=== PATIENT | female | born 2000 | race Caucasian/White ===

== ENCOUNTER 2025-02-12 10:52 | Emergency (ER) | payer SELFPAY ==
[2025-02-12 11:03] VITALS: BP 123/79; PULSE 91; RESP 18; TEMP 36.7; O2SAT 98; BMI 18.8
--- NOTE | 2025-02-12 12:00 | XRR_ITS ---
PROCEDURE INFORMATION: Exam: XR Right Elbow Exam date and time: 02/12/2025 12:24 PM Age: 24 years old Clinical indication: Screening exam; Fb; Additional info: Possible foreign body to medial RT elbow; PT had iv placed x 2mo ago; Has had pain/ subcutaneous deformity since; PT thinks they May have broken an iv cath off in arm TECHNIQUE: Imaging protocol: Radiologic exam of the right elbow. Views: 3 or more views. COMPARISON: No relevant prior studies available. FINDINGS: Bones/joints: Normal. Soft tissues: Normal. XR/XR elbow RT min 3V* [id number] IMPRESSION: 1. No acute findings. 2. No foreign body noted
--- NOTE | 2025-02-12 12:30 | W.ED.SKABFB ---
HPI - Skin/Abscess/Foreign Bdy General: Chief complaint: Skin/Abscess/Foreign Body Stated complaint: IV lead left in arm Time Seen by Provider: 02/12/25 12:16 History of Present Illness: 24-year-old male presents emergency room concerned about a retained foreign body from an IV in his right arm and a basilic vein from December 15 of this year. No abscess no fever sweats or chills. Palpable nodule in that area Related Data Home Medications ?Medication ?Instructions ?Recorded ?Confirmed albuterol sulfate 90 mcg/actuation 2 puff inhalation Q6H PRN 01/14/25 02/12/25 aerosol inhaler Shortness Of Breath cetirizine 10 mg tablet 10 mg PO DAILY 01/14/25 02/12/25 metoprolol succinate 25 mg 25 mg PO DAILY 01/14/25 02/12/25 tablet,extended release 24 hr pantoprazole 40 mg tablet,delayed 40 mg PO DAILY 01/14/25 02/12/25 release trazodone 100 mg tablet 200 mg PO BEDTIME 01/14/25 02/12/25 aripiprazole 20 mg tablet (Abilify) 20 mg PO DAILY 02/12/25 02/12/25 lithium carbonate 150 mg capsule 300 mg PO BID 02/12/25 02/12/25 Previous Rx's ?Medication ?Instructions ?Recorded budesonide-formoterol HFA 160 1 inh inhalation BID #10.2 grams 01/14/25 mcg-4.5 mcg/actuation aerosol inhaler (Symbicort) Allergies Allergy/AdvReac Type Severity Reaction Status Date / Time amoxicillin Allergy ALGY-Rash Verified 02/12/25 11:07 cephalexin Allergy ALGY-Anaphy Verified 01/14/25 17:20 laxis Penicillins Allergy ALGY-Rash Verified 01/14/25 17:20 PFSH ED PFSH: Medical History Smoking addiction Social History Smoking and tobacco/nicotine status: current every day tobacco/nicotine user Physical Exam Extremity: OTHER: Examination extremity is a palpable nodule overlying the about an inch and a half then another little more proximal in a superficial basilic vein. There is no redness no erythema no induration no fluctuance. Minimal tenderness Course Vital Signs: Vital signs: Vital Signs Temperature 98.1 F 02/12/25 11:03 Pulse Rate 91 02/12/25 11:03 Respiratory Rate 18 02/12/25 11:03 Blood Pressure 123/79 02/12/25 11:03 Pulse Oximetry 98 02/12/25 11:03 Oxygen Delivery Me thod Nasal Cannula 02/12/25 11:03 MDM - Skin/Abscess/Foreign Bdy Medicial Decision Making On ultrasound it appears the vessel wall is thickened however it does appear to have flow through there is not appear to be any identifiable foreign body x-ray also does not show foreign body with the penetration turned down to focus more on soft tissue. Is still possible that the IV catheter if it was retained would not show up however there are 2 separate areas both palpable nodules of believe he had a thrombophlebitis based on the ultrasound looks like it is already been recannulated. Advised the patient this time is no emergent condition if he is still very concerned about this and wished to have something further done he can talk to his primary care doctor about referral to vascular surgeon to have that section of vein excised. Medical Records I reviewed the patient's medical records. Lab Data I reviewed the patient's lab results. 02/12/25 12:16 Radiology Impressions Elbow X-Ray 02/12/25 12:00 IMPRESSION: 1. No acute findings. 2. No foreign body noted Laboratory Results WBC 9.84 10^3/uL (3.29-11.43) 02/12/25 12:16 RBC 5.38 10^6/uL (3.85-5.65) 02/12/25 12:16 Hgb 14.80 g/dL (11.27-16.99) 02/12/25 12:16 Hct 46.0 % (36-47) 02/12/25 12:16 MCV 85.5 fl (85-98) 02/12/25 12:16 MCH 27.5 pg (27-33) 02/12/25 12:16 MCHC 32.2 g/dL (30-55) 02/12/25 12:16 RDW 13.2 % (12.1-15.1) 02/12/25 12:16 Plt Count 222 10^3/cmm (157-399) 02/12/25 12:16 MPV 9.0 fL (7.4-10.4) 02/12/25 12:16 Neut % (Auto) 65.1 % 02/12/25 12:16 Lymph % (Auto) 23.1 % 02/12/25 12:16 George % (Auto) 8.6 % 02/12/25 12:16 Eos % (Auto) 2.4 % 02/12/25 12:16 Baso % (Auto) 0.5 % 02/12/25 12:16 Neut # (Auto) 6.40 10^3/uL (1.8-7.7) 02/12/25 12:16 Lymph # (Auto) 2.3 10^3/uL (0.8-4.8) 02/12/25 12:16 George # (Auto) 0.9 10^3/uL (0.2-0.9) 02/12/25 12:16 Eos # (Auto) 0.2 10^3/uL (0.0-0.8) 02/12/25 12:16 Baso # (Auto) 0.1 10^3/uL (0.0-0.1) 02/12/25 12:16 Nucleated RBC % (auto) 0 % 02/12/25 12:16 Nucleated RBCs # 0.0 /100WBC 02/12/25 12:16 All radiology interpretation(s) finalized by discharge Discharge Plan Discharge Patient Disposition: Home Clinical Impression: Thrombophlebitis arm Condition: Stable Prescriptions: No Action cetirizine 10 mg tablet 10 mg PO DAILY trazodone 100 mg tablet 200 mg PO BEDTIME pantoprazole 40 mg tablet,delayed release (DR/EC) 40 mg PO DAILY metoprolol succinate 25 mg tablet extended release 24 hr 25 mg PO DAILY albuterol sulfate 90 mcg/actuation HFA aerosol inhaler 2 puff inhalation Q6H PRN (Reason: Shortness Of Breath) budesonide-formoterol [Symbicort] 160-4.5 mcg/actuation HFA aerosol inhaler 1 inh inhalation BID Qty: 10.2 2RF lithium carbonate 150 mg Capsule 300 mg PO BID aripiprazole [Abilify] 20 mg Tablet 20 mg PO DAILY Discharge Orders: Discharge ED (Routine); Ordered 02/12/25 Ordered By: Jong Dai Discharge Diet: Usual diet Discharge Activity: Resume usual activity Patient Instructions: Opioid Safety, Pain Management Activity Restrictions/Additional Instructions: Thank you for choosing [facility] for your healthcare needs today. It is very important that you follow up as instructed or that you return to the Emergency Department should you have concerns or if your condition changes or worsens in any way. You were seen in the emergency room for concern of a retained IV catheter tip. X-ray of the area with adjustment to focus on soft tissue did not show any retained foreign bodies. 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 This occurs when there is irritation of the blood vessels small clot will form. These are not dangerous or life-threatening. Given the amount of time it is fast since she originally had this IV there is nothing emergent at this time. If you wish to have this further evaluated you can have your primary care doctor refer you to a vascular surgeon. Print Language: Spanish Coding Level of Care Code ED Patient Companion for Terry Burden
[2025-02-12 12:42] LABS: Basophils # 0.1 10^3/uL (0.0-0.1); Basophils % 0.5 %; Eosinophils # 0.2 10^3/uL (0.0-0.8); Eosinophils % 2.4 %; Lymphocytes # 2.3 10^3/uL (0.8-4.8); Lymphocytes % 23.1 %; Mean Corpuscular HGB Conc 32.2 g/dL (30-55); Mean Corpuscular Hemoglobin 27.5 pg (27-33); Mean Corpuscular Volume 85.5 fl (85-98); Monocytes # 0.9 10^3/uL (0.2-0.9); Monocytes % 8.6 %; Neutrophils % 65.1 %; Nucleated Red Blood Cells % 0 %; Platelet Count 222 10^3/cmm (157-399); Red Blood Count 5.38 10^6/uL (3.85-5.65); Red Cell Distribution Width 13.2 % (12.1-15.1); White Blood Count 9.84 10^3/uL (3.29-11.43)
--- NOTE | 2025-02-12 13:24 | PC.PHAR ---
Verified medications with Janiya Whitlock dosage increased from 10mg to 20mg daily and [place] is 150mg-[address] Peralta 12/21/24 but not filled yet.
== END 2025-02-12 13:30 | disposition home or self-care (01) ==
PROVIDERS: Emergency Provider Family Medicine
DX: I80.8 Phlebitis and thrombophlebitis of other sites (principal); Z72.0 Tobacco use
CPT/HCPCS: 73080; 85025; 99284

== ENCOUNTER 2025-02-19 00:23 | Inpatient (IN) | payer SELFPAY ==
--- OUTSIDE RECORDS SUMMARY | 2025-02-19 00:30 | XMS_ITS | Clinical Summary ---
Author Organization [facility] [employer] Address [address] [place] [address] Care Team Providers Care Phone Engineer Name Role Phone Carla Peralta MD Primary Care Provider [phone] Carla Peralta MD Unavailable Roscoe Ulloa MD Unavailable [phone] Source Comments [facility],non-owned Affiliates and Associated Physician Practices is amultiple site organization consisting of ambulatory clinics and hospital sitesin [place], [place], [place] and [place]. This disclosure is being madepursuant to the Care Everywhere program and may not contain all information available regarding this patient. Last updated 18.[facility] Allergies Active Allergy Reactions Criticality Noted Date Comments Amoxicillin Rash Low 04/26/2016 Cephalexin Vomiting 01/11/2021 Penicillins Unknown 12/26/2021 Methylphenidate Other 05/11/2016 Makes violent [place] Anaphylaxis High 04/26/2016 Tree Nuts Vomiting 03/02/2022 Medications * This document contains information received from the source organization and may not represent a complete record from that organization. * Be aware that medications may not be up to date on this document. Alwaysverify current medications with the patient. hydrOXYzine HCl (Atarax) 50 MG tabletIndicati ons:Anxiety Take 1 (one) tablet by mouth every 6 hours as needed Reasons: Feeling Anxious 30 tablet 5 10:00 AM CDT 11/04/19 25 Active traZODone (Desyrel) 50 MG tabletIndicati ons:Insomnia Take 1 (one) tablet by mouth nightly as needed for Insomnia Reasons: Trouble Sleeping 30 tablet 5 10:00 AM CDT 11/04/19 25 Active prazosin (Minipress) 2 MG capsuleIndicat ions:Nightmare s Take 1 (one) capsule by mouth at bedtime Reasons: Frightening Dreams 30 capsule 5 10:00 AM CDT 11/04/19 25 Active melatonin 3 MG tabletIndicati ons:Insomnia Take 1 (one) tablet by mouth nightly as needed for Insomnia Reasons: Trouble Sleeping 30 tablet 11/04/19 25 Active pantoprazole EC (Protonix) 40 MG tabletIndicati ons:Gastroesop hageal Reflux Disease Take 1 (one) tablet by mouth once daily Reasons: Gastroesophageal Reflux Disease 90 tablet 5 10:00 AM CDT 11/05/19 25 Active budesonide-for moterol (Symbicort) 160-4.5 MCG/ACT inhaler Inhale 2 (two) puffs by mouth 2 times daily 11/04/19 25 Active metoprolol succinate XL 24hr (Toprol XL) 25 MG tablet Take 1 (one) tablet by mouth once daily 11/05/19 25 Active lithium CR (Eskalith CR) 450 MG tabletIndicati ons:Bipolar Mood Disorder Take 2 (two) tablets by mouth at bedtime Reasons: Manic-Depression 60 tablet 1 11/05/19 25 Active Active Problems Problem Noted Date Diagnosed Date Psychosis, unspecified psychosis type 12/01/2021 Major depression 04/26/2016 Anxiety states 04/26/2016 Suicidal ideation 04/26/2016 Encounters Date Type Department Care Team Description 12/11/2024 5:31 PM CDT - 12/12/2024 4:13 AM CDT Emergency [facility] EMERGENCY DEPARTMENT [address] [place] [phone] Anxiety states Discharge Disposition: Left Against Medical Advice/Discontinued Care from Last 3 Months Immunizations Immunization Administration Dates Next Due HEP A PEDS 2 DOSE 09/05/2016 INFLUENZA VACCINE, QUADR. (F LUZONE; FLULAVAL; FLUARIX; AFLURIA QUADRIVALENT; 6MO+), 0.5 ML (IIV4) 05/12/2016 Social History Tobacco Use Types Packs/Day Years Used Date Smoking Tobacco: Every Day Cigarettes Smokeless Tobacco: Never Tobacco Cessation:Ready to Q uit: Yes; Counseling Given: No Comments:Patient refused counseling Alcohol Use Standard Drinks/Week Comments Yes 0 (1 standard drink = 0.6 oz pur e alcohol) occ AUDIT-C Answer Date Recorded Q1: How often do you have a drink containing alcohol? Patient declined 10/23/2024 Q2: How many drinks containi ng alcohol do you have on a typical day when you are drinking? Patient does not drink Q3: How often do you have si x or more drinks on one occasion? Never 10/23/2024 Overall Financial Resource Strain (CARDIA) Answe r Date Recorded How hard is it for you to pa y for the very basics like food, housing, medical care, and heating? Very hard 10/23/2024 PHQ-2 Answer Date Recorded Patient Health Questionnaire-2 Score 6 09/22/2024 [facility] Occupat ional Health - Occupational Stress Questionnaire Answer Date Recorded Do you feel stress - tense, restless, nervous, or anxious, or unable to sleep at night because your mind is troubled all the time - these days? Very much 10/23/2024 Hunger Vital Sign Answer Date Recorded Within the past 12 months, y ou worried that your food would run out before you got the money to buy more. Often true 10/24/19 25 Within the past 12 months, t he food you bought just didn't last and you didn't have money to get more. Often true 10/23/2024 PRAPARE - Transportation Answer Date Re corded In the past 12 months, has l ack of transportation kept you from medical appointments or from getting medications? Yes 08/2024 In the past 12 months, has l ack of transportation kept you from meetings, work, or from getting things needed for daily living? Yes 10/23/2024 Housing Stability Vital Sign Answer Margarito e Recorded In the last 12 months, was t here a time when you were not able to pay the mortgage or rent on time? Yes 10/23/2024 In the past 12 months, how m any times have you moved where you were living? 2 10/23/2024 At any time in the past 12 m [facility], were you homeless or living in a usp (including now)? Yes 10/23/2024 Comments No Sex and Gender Information Value Date Recorded Sex Assigned at Female 11/10/2024 8:09 AM CDT Legal Sex Male 3:19 PM CDT Gender Identity Genderqueer 10/30/2024 3:59 PM GEAR TESTER Sexual Orientation Female transgender 10/23/2024 1:30 AM GEAR TESTER Last Filed Vital Signs Vital Sign Reading Time Taken Comments Blood Pressure 125/96 12/11/2024 5:32 PM CDT Pulse 77 12/11/2024 5:32 PM CDT Temperature 36.8 C (98.3 F) 12/11/2024 5:32 PM CDT Respiratory Rate 18 12/11/2024 5:32 PM CDT Oxygen Saturation 99% 12/11/2024 5:32 PM CDT Inhaled Oxygen Concentration - - Weight 61.2 kg (135 lb) 12/11/2024 5:32 PM CDT Height 180.3 cm (5' 11 ) 12/11/2024 5:32 PM CDT Body Mass Index 18.83 12/11/2024 5:32 PM CDT Plan of Treatment Health Maintenance Due Date Last Done Comments HIV SCREENING 2015 HPV VACCINE (1 - 3-dose series) 2015 HEPATITIS C SCREENING 07/06/2018 DTAP/TDAP/TD VACCINES (1 - Tdap) 2019 HEPATITIS B VACCINE (1 of 3 - 19+ 3-dose series) 2019 PNEUMOCOCCAL VACCINE (1 of 2 - PCV) 2019 CHLAMYDIA/GONORRHEA SCREENING 02/25/2023 02/25/2022 COVID-19 VACCINE (2 - 2023-2 5 season) 2024 11/29/2020 INFLUENZA VACCINE (Season Ended) 2025 05/12/2016 ZOSTER VACCINE (1 of 2) 2050 DEPRESSION SCREENING Completed 09/22/2024, 03/02/2022 HIB VACCINE Aged Out No longer eligi ble based on patient's age to complete this topic MENINGOCOCCAL (Group B) VACCINE SHARED DECISION-MAKING Aged Out No longer eligible based on patient's age to complete this topic MENINGOCOCCAL GROUPS A/C/Y/W VACCINE Aged Out No longer eligible b ased on patient's age to complete this topic Procedures Procedure Name Priority Date/Time Associated Diagnosis Comments CARDIAC EKG ORDER 12/13/2024 11: 59 AM CDT COMPREHENSIVE METABOLIC PANEL STAT 12/11/2024 7:45 PM CDT CBC W AUTO DIFFERENTIAL STAT 12/11/2024 7:45 PM CDT EKG 12-LEAD Routine 12/11/2024 5:44 PM CDT Anxiety states from Last 3 Months Results * CARDIAC EKG ORDER (12/13/2024 11:59 AM CDT) Narrative 12/13/2024 11:59 AM CDT Ordered by an unspecified provider. us Scanned Document CARDIAC SERVICES ORDERABLES Fin al Result * (ABNORMAL) CBC W AUTO DIFFERENTIAL (12/11/2024 7:45 PM CDT) WBC 11.3(H) 4.0 - 10.7 x10E9/L 12/11/2024 8:13 PM CDT [facility] RBC Count 5.08 4.30 - 5.80 x10E12/L 12/11/2024 8:13 PM CDT [facility] Hemoglobin 14.3 13.3 - 17.5 g/dL 12/11/2024 8:13 PM CDT [facility] Hematocrit 42.8 38.7 - 51.1 % 12/11/2024 8:13 PM CDT [facility] MCV 84.3 80.0 - 98.0 fL 12/11/2024 8:13 PM CDT [facility] MCH 28.1 26.7 - 33.6 pg 12/11/2024 8:13 PM CDT [facility] MCHC 33.4 31.7 - 36.3 g/dL 12/11/2024 8:13 PM [facility] RDW-CV 12.5 11.3 - 14.8 % 12/11/2024 8:13 PM [facility] Platelet Count 241 150 - 420 x10E9/L 12/11/2024 8:13 PM [facility] MPV 8.8 7.8 - 11.4 fL 12/11/2024 8:13 PM [facility] Neutrophil % 59.8 41.0 - 74.0 % 12/11/2024 8:13 PM [facility] Lymphocyte % 29.1 17.0 - 47.0 % 12/11/2024 8:13 PM [facility] Monocyte % 7.1 3.0 - 11.0 % 12/11/2024 8:13 PM [facility] Eosinophil % 3.3 0.0 - 7.0 % 12/11/2024 8:13 PM [facility] Basophil % 0.3 0.0 - 1.6 % 12/11/2024 8:13 PM [facility] Immature Granulocytes % 0.4 0.0 - 1.0 % 12/11/2024 8:13 PM [facility] Neutrophil Absolute 6.74 1.60 - 7.50 x10E9/L 12/11/2024 8:13 PM [facility] Lymphocyte Absolute 3.27 1.00 - 4.40 x10E9/L 12/11/2024 8:13 PM [facility] Monocyte Absolute 0.80 0.15 - 1.00 x10E9/L 12/11/2024 8:13 PM [facility] Eosinophil Absolute 0.37 0.00 - 0.60 x10E9/L 12/11/2024 8:13 PM [facility] Basophil Absolute 0.03 0.00 - 0.13 x10E9/L 12/11/2024 8:13 PM [facility] Blood BLOOD SPECIMEN / Unknown Venipuncture / Unknown 12/11/2024 7:45 PM T 12/11/2024 8:10 PM CDT us Tawana Sweet PA-C LAB - HEMATOLOGY ORDERABLES F inal Result [facility] [address] [place] [phone], [facility] [phone] * (ABNORMAL) COMPREHENSIVE METABOLIC PANEL (12/11/2024 7:45 PM CDT) BUN 13 7 - 26 mg/dL 12/11/2024 8:37 PM [facility] Creatinine 0.69 mg/dL 12/11/2024 8:37 PM [facility] Sodium 141 136 - 145 mmol/L 12/11/2024 8:37 PM [facility] Potassium 4.1 3.5 - 4.5 mmol/L 12/11/2024 8:37 PM [facility] Chloride 108(H) 98 - 107 mmol/L 12/11/2024 8:37 PM [facility] CO2 25 22 - 29 mmol/L 12/11/2024 8:37 PM [facility] Glucose 87 70 - 99 mg/dL 12/11/2024 8:37 PM [facility] Calcium 8.7 8.4 - 10.2 mg/dL 12/11/2024 8:37 PM [facility] Protein Total 7.4 6.0 - 8.3 g/dL 12/11/2024 8:37 PM [facility] Albumin 4.1 3.4 - 5.0 g/dL 12/11/2024 8:37 PM [facility] Bilirubin Total 0.4 0.2 - 1.2 mg/dL 12/11/2024 8:37 PM [facility] Alkaline Phosphatase 47 40 - 150 U/L 12/11/2024 8:37 PM [facility] ALT 16 5 - 55 U/L 12/11/2024 8:37 PM [facility] AST 17 5 - 34 U/L 12/11/2024 8:37 PM [facility] Anion Gap 8 6 - 16 12/11/2024 8:37 PM [facility] BUN/Creatinine Ratio 19 7 - 23 12/11/2024 8:37 PM CDT [facility] Osmolality Calculated 291 275 - 295 mOsm/kg 12/11/2024 8:37 PM CDT [facility] Albumin/Globulin Ratio 1.2 1.1 - 2.3 12/11/2024 8:37 PM CDT [facility] eGFR by CKD-EPI >90 >=90 mL/min/1.7 3 m2 12/11/2024 8:37 PM CDT [facility] Blood BLOOD SPECIMEN / Unknown Venipuncture / Unknown 12/11/2024 7:45 PM CDT 12/11/2024 8:10 PM CDT us Tawana Sweet PA-C LAB - CHEMISTRY ORDERABLES Fi nal Result [facility] [address] [place] [address], [facility] [phone] * EKG 12-LEAD (12/11/2024 5:44 PM CDT) Pathologist [facility] Ventricular Rate 75 BPM SL MUSE Atrial Rate 75 BPM [facility] MUSE P-R Interval 138 ms [facility] MUSE QRS Duration ms 84 ms [facility] MUSE Q-T Interval ms 354 ms [facility] MUSE QTC Calculation (Bezet) 395 ms [facility] MUSE Calculated P Stanley 67 degrees SL MUSE Calculated R Stanley 97 degrees [facility] MUSE Calculated T Stanley 31 degrees [facility] MUSE Interpretation EKG NORMAL SINUS RHYTHM RIGHTWARD AXIS BORDERLINE ECG WHEN COMPARED WITH ECG OF 13-NOV-2021 10:52, NO SIGNIFICANT CHANGE WAS FOUND Confirmed by CINTHYA GARCIA, LUIS ([id number]) on 12/17/2024 2:48:45 PM [facility] MUSE 12/11/2024 5:44 PM CDT 12/17/2024 2:48 PM CDT us Tima Edmonds MD ECG ORDERABLES Edited Resul t - Final [facility] MUSE from Last [address] [facility] Advance Directives * Full Code (Latest Code Status on File) Date Activated Date Inactivated Comments 10/22/2024 11:02 PM 11/04/2024 1:36 PM * Full Code Date Activated Date Inactivated Comments 12/01/2021 5:37 PM 12/04/2021 3:30 PM * Full Code Date Activated Date Inactivated Comments 05/10/2016 1:21 AM 05/15/2016 5:28 PM * Full Code Date Activated Date Inactivated Comments 04/26/2016 6:14 AM 05/02/2016 12:28 PM Care Teams Phone Engineer Relationship Specialty Start Date End Date Carla Peralta MD [address] [place] [phone] PCP - General Family Medicine 09/02/24 Carla Peralta MD [address] [place] [phone] Family Medicine 09/02/24 Roscoe Ulloa MD [address] [phone] 07/02/21
[2025-02-19 00:31] VITALS: BP 122/82; PULSE 64; RESP 20; TEMP 36.6; O2SAT 97; BMI 13.9
--- NOTE | 2025-02-19 00:36 | ECG_ITS ---
[employer] Test Date: 2025-02-19 Pat Name: Tina Duarte Department: Room: Gender: Female Certified Legal Investigator: : [id number] Requested By: Qing Trimble Order Number: [id number] Jumana MD: Daniel Lawson M.D. Measurements Intervals [place] Rate: 58 P: 66 MA: 154 QRS: 89 QRSD: 89 T: 68 QT: 388 QTc: 381 Interpretive Statements SINUS BRADYCARDIA POSSIBLE RIGHT VENTRICULAR CONDUCTION DELAY [RSR (QR) IN V1/V2] NONSPECIFIC T-WAVE ABNORMALITY No previous ECG available for comparison Electronically Signed On 02-24-2025 09:17:01 CDT by Daniel Lawson M.D. [email or web address]
--- NOTE | 2025-02-19 00:42 | ED.C_ITS ---
HPI - Psych 2 General: Chief Complaint: Psychiatric Symptoms Stated Complaint: si Time Seen by Provider: 02/19/25 00:36 History of Present Illness: Patient is a 24-year-old male that identifies as a female/transgender, with history of borderline personality disorder, bipolar disorder, addiction disorder, that reports to the emergency room with suicidal ideations. He states he has had multiple psychiatric admissions throughout his life. Last 1 was 2 months ago in [place]. Tonight he had a verbal altercation with his father, and stated he was going to take all of his lithium. He has not had a follow-up with psychiatry in a while, however states compliance to his lithium. Denies any other symptoms. Drugs of choice: Cocaine, cannabis. States he does not have any stimulants in his symptom, however has had cannabis by mouth recently. Associated symptoms: Deny depression Related Data Home Medications ?Medication ?Instructions ?Recorded ?Confirmed albuterol sulfate 90 mcg/actuation 2 puff inhalation Q 6H PRN 01/14/25 02/12/25 aerosol inhaler Shortness Of Breath cetirizine 10 mg tablet 10 mg PO DAILY 01/14/2501/24 metoprolol succinate 25 mg 25 mg PO DAILY 01/14/25 tablet,extended release 24 hr pantoprazole 40 mg tablet,delayed 40 mg PO DAILY 01/1402/12/25 release trazodone 100 mg tablet 200 mg PO BEDTIME 01/14/25 0 02/12/25 aripiprazole 20 mg tablet (Abilify) 20 mg PO DAILY 02/12/25 lithium carbonate 150 mg capsule 300 mg PO BID 5 02/12/25 Previous Rx's ?Medication ?Instructions ?Recorded budesonide-formoterol HFA 160 1 inh inhalation BID #10 .2 grams 01/14/25 mcg-4.5 mcg/actuation aerosol inhaler (Symbicort) Allergies Allergy/AdvReac Type Severity Reaction Status Date / Time amoxicillin Allergy ALGY-Rash Verified 02/12/25 11:07 cephalexin Allergy ALGY-Anaphy Verified 01/14/25 17:20 laxis Penicillins Allergy ALGY-Rash Verified 01/14/25 17:20 Review of Systems 2 General: Reports: 10 or more systems reviewed and unremarkable except in HPI and below Const: Denies: fever(s) or chills Eyes: Denies: change in vision or blurry vision ENMT: Denies: throat pain or mouth pain Card: Denies: chest pain or palpitations Resp: Denies: dyspnea or productive cough GI: Denies: abdominal pain or nausea : Denies: flank pain or difficulty voiding Musc: Denies: neck pain or back pain Skin/Breast: Denies: rash or pruritus Neuro: Denies: headache(s) or numbness in extremities Psych: Denies: anxiety or depression PFSH ED 2 PFSH: Medical History Smoking addiction Social History Smoking and tobacco/nicotine status: current every day tobacco/nicotine user Physical Exam 2 Const: COMMON NORMALS: no acute distress, patient oriented x3, no limitations and alert GENERAL APPEARANCE: cooperative ORIENTATION/CONSCIOUSNESS: Yes awake HENMT: COMMON NORMALS: normocephalic, atraumatic and Normal external nose present HEAD & SCALP: normal to inspection, normocephalic and atraumatic F ARAMIS & SINUS: normal facial exam NOSE: Normal external nose present Eye: COMMON NORMALS: Equal, round and reactive pupils present and EOMs intact bilaterally PUPIL: Yes Equal, round and reactive pupils present Neck/C-Spine: COMMON NORMALS: full ROM and no lymphadenopathy Resp: COMMON NORMALS: normal respiratory effort Cardio: COMMON NORMALS: regular rate, regular rhythm and Peripheral pulses 2+ throughout RATE: regular rate RHYTHM: regular rhythm PERIPHERAL PULSES: Peripheral pulses 2+ throughout GI: COMMON NORMALS: Normal to inspection, nondistended, normoactive bowel sounds present, Soft to palpation and non-tender AUSCULTATION: Yes normoactive bowel sounds PALPATION: Yes Soft to palpation : COMMON NORMALS: Yes no CVA tenderness BLADDER/KIDNEY EXAM: Yes no CVA tenderness Back/Pelvis: COMMON NORMALS: no CVA tenderness Extremity: GENERAL: Yes normal exam except as noted Neuro: COMMON NORMALS: patient oriented x3 and CN's II-XII intact bilaterally SENSORIUM/ORIENTATION: Yes alert MOTOR EXAM: 5/5 motor strength present throughout Psych: COMMON NORMALS: cooperative and speech normal ATTITUDE: Yes calm ACTIVITY/MOTOR BEHAVIOR: Yes appropriate eye contact SPEECH: Yes normal speech and Yes rapid THOUGHT PROCESS: Circumstantial thought process present THOUGHT CONTENT: Yes Suicidality present ATTENTION/CONCENTRATION: Yes attention grossly intact Skin: COMMON NORMALS: no rashes or lesions noted and no wounds GENERAL SKIN EXAM: no rashes or lesions noted Course 2 Vital Signs: Vital signs: Vital Signs Temperature 98 F 02/19/25 00:31 Pulse Rate 64 02/19/25 00:31 Respiratory Rate 20 H 02/19/25 00:31 Blood Pressure 122/82 02/19/25 00:31 Pulse Oximetry 97 02/19/25 00:31 MDM - Psych Medical Decision Making 24-year-old identifies as female presents to ED with intent of suicide. Will fill out an affidavit and refer to psychiatry. Screening/workup is consistent with patient's history. THC is screened positive. Additional laboratory data was without findings. Patient states compliance to his medications, however coping skills are most likely lacking. He is threatening suicide ideation with plan of taking his lithium. Will refer him for placement. No beds at this facility. Affidavit has been submitted although patient is a voluntary basis, Lab Data 02/19/25 01:10 02/19/25 01:10 Laboratory Results WBC 9.69 10^3/uL (3.29-11.43) 02/19/25 01:10 RBC 5.23 10^6/uL (3.85-5.65) 02/19/25 01:10 Hgb 14.10 g/dL (11.27-16.99) 02/19/25 01:10 Hct 42.6 % (36-47) 02/19/25 01:10 MCV 81.5 fl (85-98) L 02/19/25 01:10 MCH 27.0 pg (27-33) 02/19/25 01:10 MCHC 33.1 g/dL (30-55) 02/19/25 01:10 RDW 13.2 % (12.1-15.1) 02/19/25 01:10 Plt Count 241 10^3/cmm (157-399) 02/19/25 01:10 MPV 8.8 fL (7.4-10.4) 02/19/25 01:10 Neut % (Auto) 65.8 % 02/19/25 01:10 Lymph % (Auto) 22.3 % 02/19/25 01:10 [place] % (Auto) 9.2 % 02/19/25 01:10 Eos % (Auto) 1.8 % 02/19/25 01:10 Baso % (Auto) 0.5 % 02/19/25 01:10 Neut # (Auto) 6.38 10^3/uL (1.8-7.7) 02/19/25 01:10 Lymph # (Auto) 2.2 10^3/uL (0.8-4.8) 02/19/25 01:10 [place] # (Auto) 0.9 10^3/uL (0.2-0.9) 02/19/25 01:10 Eos # (Auto) 0.2 10^3/uL (0.0-0.8) 02/19/25 01:10 Baso # (Auto) 0.1 10^3/uL (0.0-0.1) 02/19/25 01:10 Nucleated RBC % (auto) 0 % 02/19/25 01:10 Nucleated RBCs # 0.0 /100WBC 02/19/25 01:10 Sodium 137 mmol/L (136-145) 02/19/25 01:10 Potassium 3.6 mmol/L (3.5-5.1) 02/19/25 01:10 Chloride 100 mmol/L (98-107) 02/19/25 01:10 Carbon Dioxide 26 mmol/L (22-29) 02/19/25 01:10 Anion Gap 14.6 (5-19) 02/19/25 01:10 BUN 5 mg/dL (6-20) L 02/19/25 01:10 Creatinine 0.8 mg/dL (0.5-0.9) 02/19/25 01:10 GFR Calculation 88.1 mL/min (90-130) L 02/19/25 01:10 Glucose 104 mg/dL (65-115) 02/19/25 01:10 Calculated Osmolality 282 mOsm/kg (285-295) L 02/19/25 01:10 Calcium 9.5 mg/dL (8.5-10.5) 02/19/25 01:10 Total Bilirubin 0.3 mg/dL (0.15-1.2) 02/19/25 01:10 AST 12 U/L (0-32) 02/19/25 01:10 ALT 8 U/L (0-33) 02/19/25 01:10 Alkaline Phosphatase 52 U/L (35-105) 02/19/25 01:10 Total Protein 7.0 g/dL (6.6-8.7) 02/19/25 01:10 Albumin 4.0 g/dL (3.5-5.2) 02/19/25 01:10 Globulin 3.0 g/dL (1.3-4.6) 02/19/25 01:10 TSH 4.11 uIU/mL (0.27-4.20) 02/19/25 01:10 Urine Color Yellow (Yellow) 02/19/25 00:53 Urine Appearance Clear (CLEAR) 02/19/25 00:53 Urine pH 7.0 (5-7) 02/19/25 00:53 Ur Specific Doyle 1.001 (1.005-1.030) L 02/19/25 00:53 Urine Protein Negative (Negative) 02/19/25 00:53 Urine Glucose (UA) Negative (Normal) 02/19/25 00:53 Urine Ketones Negative (Negative) 02/19/25 00:53 Urine Blood Negative (Negative) 02/19/25 00:53 Urine Nitrate Negative (Negative) 02/19/25 00:53 Urine Bilirubin Negative (Negative) 02/19/25 00:53 Urine Urobilinogen 0.2 mg/dL (Negative) 02/19/25 00:53 Ur Leukocyte Esterase Negative (Negative) 02/19/25 00:53 Urine RBC 0-2 /hpf (0-2) 02/19/25 00:53 Urine WBC 0-5 /hpf (0-5) 02/19/25 00:53 Ur Squamous Epith Cells 0-5 /hpf (0-5) 02/19/25 00:53 Amorphous Sediment Not Reportable 02/19/25 00:53 Urine Bacteria None seen /hpf (NONE) 02/19/25 00:53 Hyaline Casts 0-4 /lpf H 02/19/25 00:53 Salicylates < 0.3 mg/dL (3-10) L 02/19/25 01:10 Urine Opiates Screen Negative ng/mL (Negative) 02/19/25 00:53 Acetaminophen < 5.0 ug/mL (10-30) L 02/19/25 01:10 Ur Barbiturates Screen Negative ng/mL (Negative) 02/19/25 00:53 Ur Phencyclidine Scrn Negative ng/mL (Negative) 02/19/25 00:53 Ur Amphetamines Screen Negative ng/mL (Negative) 02/19/25 00:53 U Benzodiazepines Scrn Negative ng/mL (Negative) 02/19/25 00:53 Strang 0.7 mmol/L (0.6-1.2) 02/19/25 01:10 Urine Cocaine Screen Negative ng/mL (Negative) 02/19/25 00:53 U Marijuana (THC) Screen Positive ng/mL (Negative) H 02/19/25 00:53 Ethyl Alcohol < 10 mg/dL (0-10) 02/19/25 01:10 No radiology studies performed this visit Discharge Plan Discharge Patient Disposition: Xfer Psychiatric Hosp Clinical Impression: Suicidal ideation Condition: Stable Discharge Diet: Usual diet Discharge Activity: Resume usual activity Print Language: [place] Citizen Coding Level of Care Code ED Regional Merchandising Manager for Terry Burden
[2025-02-19 01:20] LABS: Hematocrit 42.6 % (36-47); Hemoglobin 14.10 g/dL (11.27-16.99); Mean Corpuscular HGB Conc 33.1 g/dL (30-55); Mean Corpuscular Hemoglobin 27.0 pg (27-33); Mean Corpuscular Volume 81.5 fl (85-98); Nucleated Red Blood Cells % 0 %; Platelet Count 241 10^3/cmm (157-399); Red Blood Count 5.23 10^6/uL (3.85-5.65); White Blood Count 9.69 10^3/uL (3.29-11.43)
[2025-02-19 01:38] LABS: Glucose Urine UA Negative (Normal); Nitrate Urine Negative (Negative); Specific Gravity, Urine 1.001 (1.005-1.030)
[2025-02-19 01:40] LABS: Add Urine Microscopic? YES
[2025-02-19 01:43] LABS: Alanine Aminotransferase 8 U/L (0-33); Albumin Level 4.0 g/dL (3.5-5.2); Alkaline Phosphatase 52 U/L (35-105); Anion Gap 14.6 (5-19); Aspartate Amino Transferase 12 U/L (0-32); Blood Urea Nitrogen 5 mg/dL (6-20); Calcium 9.5 mg/dL (8.5-10.5); Carbon Dioxide 26 mmol/L (22-29); Chloride 100 mmol/L (98-107); Creatinine Clr Calc Pharmacy 77.6458; Globulin 3.0 g/dL (1.3-4.6); Glucose 104 mg/dL (65-115); Osmolality Calculated 282 mOsm/kg (285-295); Potassium 3.6 mmol/L (3.5-5.1); Sodium 137 mmol/L (136-145); Thyroid Stimulating Hormone 4.11 uIU/mL (0.27-4.20); Total Protein 7.0 g/dL (6.6-8.7)
[2025-02-19 01:45] LABS: PCP Screen Urine Negative (Negative)
[2025-02-19 01:47] LABS: Acetaminophen < 5.0 ug/mL (10-30); Alcohol Level < 10 mg/dL (0-10); Salicylate < 0.3 mg/dL (3-10)
[2025-02-19 01:48] LABS: Lithium 0.7 mmol/L (0.6-1.2)
[2025-02-19 06:27] VITALS: BP 112/75; PULSE 85; RESP 18; O2SAT 98
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
[2025-02-19 07:40] VITALS: BP 126/84; PULSE 70; RESP 18; TEMP 36.8; O2SAT 98
--- NOTE | 2025-02-19 08:36 | PC.ADMIT ---
[id number] [address] Admission Note: The patient,Tina Duarte,24 y/o, was given written information regarding hospital policies, unit procedures and contact persons. Patient's smoking status: current every day smoker. Vital Signs - 8 hr 02/19/25 06:27 02/19/25 07:40 02/19/25 07:44 Temperature 98.2 F Pulse Rate 85 70 Respiratory Rate 18 18 Blood Pressure 112/75 126/84 Pulse Oximetry 98 98 Oxygen Delivery Method Room Air Pt. lives with dad currently. Lived in a custodial for 2.5 years in [facility]. Pt. is biologically a male, but has been transitioning to a woman. Pt. states she has been on estrogen for 5 years and her dad will not allow her to take the estrogen so she has been without it for 2 months. Pt. has been living with her mother for 2 months.
[2025-02-19] MEDS: metoprolol succinate ER (24 HR) 25 mg Tablet PO (09:51)
[2025-02-19 14:00] VITALS: BP 116/80; PULSE 90; RESP 18; TEMP 36.8; O2SAT 95
[2025-02-19 22:00] VITALS: BP 110/74; PULSE 89; RESP 17; TEMP 37; O2SAT 97
[2025-02-20 06:00] VITALS: BP 91/54; PULSE 79; RESP 16; O2SAT 99
[2025-02-20] MEDS: metoprolol succinate ER (24 HR) 25 mg Tablet PO (09:29)
[2025-02-20 10:06] LABS: Lithium 0.5 mmol/L (0.6-1.2)
[2025-02-20 14:00] VITALS: BP 117/70; PULSE 72; RESP 16; TEMP 36.6; O2SAT 97
--- NOTE | 2025-02-20 15:51 | W.PM.NPUPNS ---
Subjective NPU Subjective: 24-year-old trans female with a history of stimulant abuse along with a reported history of psychosis admitted with suicidal ideation with a history of significant difficulties with managing her transition. Patient reports that her father had not been accepting of her transition. She reports some feelings of sadness regarding this matter and stated a past history of cutting herself. She had reported some feelings of hopelessness. She had denied any psychotic symptoms at this time. She reported that she would like to consider another place to live. She had endorsed having been hospitalized for several weeks in [place] where she had previously resided. She reported having limited social supports. She had been somewhat isolative on the milieu. Mental Status Exam MSE Comments: This is a slender white trans female in hospital scrubs with improved grooming with adequate eye contact. No abnormal movements except for psychomotor retardation. Cooperative with exam and in mild to moderate distress. Speech is normal in rate and volume. Mood described as depressed, Her affect was restricted in range. Thought process organized. Thought content: Patient denies suicidal or homicidal ideation but presented secondary to suicidal thoughts, there were no delusions reported or noted, she denied auditory or visual hallucinations. Reports being very suicidal due to conflict with father over de-transitioning, with passive wishes daily for the last 3 years. Has written letters and attempted suicide by taking Tylenol and standing on a bridge. Experiences visual hallucinations and auditory hallucinations, managed by lithium. She reports extreme anxiety, worrying about things all the time, and difficulties being around large groups of people. Endorsed periods of depression, low mood, feelings of hopelessness, helplessness, and worthlessness since age 15. Attention and concentration were intact and memory appeared mostly reliable but no more formally tested. She is alert and oriented x 3. Insight and judgment appear fair. Impulse control was poor. Vitals/I&O/Wt Last Vital Signs Temp 97.8 F 02/20/25 14:00 Pulse 72 02/20/25 14:00 Resp 16 02/20/25 14:00 BP 117/70 02/20/25 14:00 Pulse Ox 97 02/20/25 14:00 O2 Del Method Room Air 02/20/25 14:00 Weight last 48 hrs Weight 64.773 kg Weight 45.359 kg Data NPU 02/19/25 01:10 02/19/25 01:10 A&P Assessment and plan (1) Suicidal ideation: (2) Gender dysphoria: (3) Borderline personality disorder: (4) History of bipolar disorder: (5) Stimulant use disorder: Plan This is a 24-year-old white trans female who is unknown to [facility] psychiatry but reports limited outpatient but significant inpatient services who presents reporting suicidality that is increasing against the backdrop of a conflict with her father and difficulty dealing with her transitioning. She has not had any surgery but has been on hormone replacement therapy reportedly for the past 5 years. The patient is experiencing significant mental health challenges, including severe depression, anxiety, and suicidal ideation, exacerbated by familial conflict related to gender identity. There is a history of substance use, including recent relapses with cocaine and methamphetamine. The patient has a history of psychosis, which is currently managed with lithium, and reports auditory hallucinations that have improved with medication. There is also a history of trauma-related symptoms, including PTSD-like experiences following abuse. The patient has a complex psychiatric history with multiple hospitalizations and a family history of mental health and addiction issues. 1.? Increase lithium 300mg tid. Consider zoloft to target ptsd symptoms, patient had tried celexa x1 in the past. Continue abilify 20mg daily. 2.? Encourage sobriety at the highest possible level of care the patient is willing to commit. 3.? Encourage individual, group and milieu therapy. 4.? Continue every 15 minute checks for safety. 5. Obtain collateral information. 6. Evaluate against the backdrop of 96-hour hold. PDMP PDMP Reviewed: Not Reviewed Involuntary Hold Information Hold Status: Date/Time Hold Expires: voluntary Attestations NPU Medical Necessity Statement*: Inpatient hospitalization is medically necessary and the clinically appropriate intervention at this time. We will monitor/initiate medications and make changes as indicated. Likely length of stay is 3-5 days. Coding Level of Care Code Acute Code for [facility] Fwd Diagnoses Suicidal ideation R45.851 Gender dysphoria F64.9 Borderline personality disorder F60.3 History of bipolar disorder Z86.59 Stimulant use disorder F15.90
[2025-02-20 20:00] VITALS: BP 111/76; PULSE 74; RESP 18; TEMP 36.6; O2SAT 99
[2025-02-21 04:39] VITALS: BP 103/73; PULSE 69; RESP 17; TEMP 36.4; O2SAT 100
[2025-02-21] MEDS: metoprolol succinate ER (24 HR) 25 mg Tablet PO (08:26)
[2025-02-21 14:00] VITALS: BP 92/57; PULSE 80; RESP 16; TEMP 36.9; O2SAT 98
--- NOTE | 2025-02-21 15:15 | P.NPUPN_ITS ---
Subjective NPU 2 Subjective: 24-year-old trans female with a history of stimulant abuse along with a reported history of psychosis admitted with suicidal ideation with a history of significant difficulties with managing her transition. The patient had endorsed having difficulties with socialization as a child and as an adult. She reports that she considered herself odd and different. She reported that she had issues with sensitivity to clothing on her body. She had reported that she had struggled with meeting new people and reported that she struggled with being able to interpret other people's feelings. She had reported that she takes things literally and often misses on what people were trying to say to her. She reports that she had gender dysphoria beginning at a very early age. Patient denied any psychosis at this time. She had isolated herself on the milieu. The patient had reported that she started using stimulants when she was homeless and had no Mental Status Exam 2 MSE Comments: This is a slender white trans female in hospital scrubs with improved grooming with fleeting eye contact. No abnormal movements except for psychomotor retardation. She was Cooperative with exam and in mild to moderate distress. Speech is normal in rate, ,monotone in quality and normal in volume. Mood described as depressed. Her affect was flat. Thought process was linear and organized. Thought content: Patient denies suicidal or homicidal ideation but presented secondary to suicidal thoughts, there were no delusions reported or noted, she denied auditory or visual hallucinations. Attention and concentration were intact and memory appeared mostly reliable but no more formally tested. She is alert and oriented x 3. Insight and judgment appear fair. Impulse control was poor. Vitals/I&O/Wt Last Vital Signs Temp 98.4 F 02/21/25 14:00 Pulse 80 02/21/25 14:00 Resp 16 02/21/25 14:00 BP 92/57 02/21/25 14:00 Pulse Ox 98 02/21/25 14:00 O2 Del Method Room Air 02/21/25 14:00 Weight last 48 hrs Weight 64.773 kg Data NPU 02/19/25 01:10 02/19/25 01:10 A&P Assessment and plan (1) Depression, unspecified: (2) Suicidal ideation: (3) Gender dysphoria: (4) Borderline personality disorder: (5) History of bipolar disorder: (6) Stimulant use disorder: (7) Autistic spectrum disorder: Plan This is a 24-year-old white trans female who is unknown to [facility] psychiatry but reports limited outpatient but significant inpatient services who presents reporting suicidality that is increasing against the backdrop of a conflict with her father and difficulty dealing with her transitioning. She has not had any surgery but has been on hormone replacement therapy reportedly for the past 5 years. The patient is experiencing significant mental health challenges, including severe depression, anxiety, and suicidal ideation, exacerbated by familial conflict related to gender identity. There is a history of substance use, including recent relapses with cocaine and methamphetamine. The patient has a history of psychosis, which is currently managed with lithium, and reports auditory hallucinations that have improved with medication. There is also a history of trauma-related symptoms, including PTSD-like experiences following abuse. The patient has a complex psychiatric history with multiple hospitalizations and a family history of mental health and addiction issues. 1.? Reduce [place] to 300mg bid as patient endorsed lightheadedness and hypotensive today. Continue abilify 20mg daily. Continue Zoloft 25mg daily. 2.? Encourage sobriety at the highest possible level of care the patient is willing to commit. 3.? Encourage individual, group and milieu therapy. 4.? Continue every 15 minute checks for safety. 5. Obtain collateral information. 6. Evaluate against the backdrop of 96-hour hold. PDMP PDMP Reviewed: Not Reviewed Involuntary Hold Information 2 Hold Status: Date/Time Hold Expires: voluntary Attestations NPU 2 Medical Necessity Statement*: Inpatient hospitalization is medically necessary and the clinically appropriate intervention at this time. We will monitor/initiate medications and make changes as indicated. The patient's likely length of stay is 3-5 days. Coding Level of Care Code Acute Code for [facility] Fwd Diagnoses Depression, unspecified F32.A Suicidal ideation R45.851 Gender dysphoria F64.9 Borderline personality disorder F60.3 History of bipolar disorder Z86.59 Stimulant use disorder F15.90 Autistic spectrum disorder F84.0
[2025-02-21 19:34] VITALS: BP 107/70; PULSE 70; RESP 18; TEMP 37.1; O2SAT 98
[2025-02-22 06:00] VITALS: BP 110/69; PULSE 65; RESP 16; TEMP 36.6; O2SAT 97
[2025-02-22] MEDS: metoprolol succinate ER (24 HR) 25 mg Tablet PO (09:05)
[2025-02-22 14:00] VITALS: BP 97/57; PULSE 80; RESP 16; TEMP 36.9; O2SAT 97
--- NOTE | 2025-02-22 15:10 | W.PM.NPUPNS ---
Subjective NPU Subjective: 24-year-old trans female with a history of stimulant abuse along with a reported history of psychosis admitted with suicidal ideation with a history of significant difficulties with managing her transition. The patient had reported often struggling to recognize facial expressions. She reported no side effects from her medications. She reported no feelings of hopelessness. She had been provided information regarding autistic spectrum disorder and had stated that she had felt that this may have been a problem that she had had for several years even as a child as she had struggled with gaze avoidance, and socialization with her peers. The patient had reported having a history of significant depression before. She had reported no change in regards to her feelings about her internal gender stating that she had felt like she was a woman for many years and reported there was significant stress associated with staying with her father who was not supportive of the patient continuing to take estradiol. Despite this, she did appreciate having routine and structure at her father's home stating that helping around the house with a regular daily plan was in some ways therapeutic for her. Mental Status Exam MSE Comments: This is a slender white trans female in hospital scrubs with improved grooming with fleeting eye contact. No abnormal movements except for psychomotor retardation. She was Cooperative with exam and in mild to moderate distress. Speech is normal in rate, ,monotone in quality and normal in volume. Mood described as a little better. Her affect was flat. Thought process was linear and organized. Thought content: Patient denies suicidal or homicidal ideation but presented secondary to suicidal thoughts, there were no delusions reported or noted, she denied auditory or visual hallucinations. Attention and concentration were intact and memory appeared mostly reliable but no more formally tested. She is alert and oriented x 3. Insight and judgment was fair. Impulse control was improving. Vitals/I&O/Wt Last Vital Signs Temp 98.4 F 02/22/25 14:00 Pulse 80 02/22/25 14:00 Resp 16 02/22/25 14:00 BP 97/57 02/22/25 14:00 Pulse Ox 97 02/22/25 14:00 O2 Del Method Room Air 02/22/25 14:00 Data NPU 02/19/25 01:10 02/19/25 01:10 A&P Assessment and plan (1) Depression, unspecified: (2) Suicidal ideation: (3) Gender dysphoria: (4) Borderline personality disorder: (5) History of bipolar disorder: (6) Stimulant use disorder: (7) Autistic spectrum disorder: Plan This is a 24-year-old white trans female who is unknown to [facility] psychiatry but reports limited outpatient but significant inpatient services who presents reporting suicidality that is increasing against the backdrop of a conflict with her father and difficulty dealing with her transitioning. She has not had any surgery but has been on hormone replacement therapy reportedly for the past 5 years. The patient is experiencing significant mental health challenges, including severe depression, anxiety, and suicidal ideation, exacerbated by familial conflict related to gender identity. There is a history of substance use, including recent relapses with cocaine and methamphetamine. The patient has a history of psychosis, which is currently managed with lithium, and reports auditory hallucinations that have improved with medication. There is also a history of trauma-related symptoms, including PTSD-like experiences following abuse. The patient has a complex psychiatric history with multiple hospitalizations and a family history of mental health and addiction issues. 1.? Reduce [place] to 300mg bid as patient endorsed lightheadedness and hypotensive today. Continue abilify 20mg daily. Continue Zoloft 25mg daily. Check lithium level tommorow in AM along with CMP, Urinalysis, TSH, CBC with diff. 2.? Encourage sobriety at the highest possible level of care the patient is willing to commit. 3.? Encourage individual, group and milieu therapy. 4.? Continue every 15 minute checks for safety. 5. Obtain collateral information. 6. Likely d/c tommorow to father's place. PDMP PDMP Reviewed: Not Reviewed Involuntary Hold Information Hold Status: Date/Time Hold Expires: voluntary Attestations NPU Medical Necessity Statement*: Inpatient hospitalization is medically necessary and the clinically appropriate intervention at this time. We will monitor/initiate medications and make changes as indicated. The patient's likely length of stay is 3-5 days. Coding Level of Care Code Acute Code for [facility] Fwd Diagnoses Depression, unspecified F32.A Suicidal ideation R45.851 Gender dysphoria F64.9 Borderline personality disorder F60.3 History of bipolar disorder Z86.59 Stimulant use disorder F15.90 Autistic spectrum disorder F84.0
[2025-02-22 19:20] VITALS: BP 111/61; PULSE 60; RESP 18; TEMP 36.7; O2SAT 94
[2025-02-23 06:00] VITALS: BP 108/66; PULSE 68; RESP 17; O2SAT 99
[2025-02-23] MEDS: metoprolol succinate ER (24 HR) 25 mg Tablet PO (09:03)
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
[2025-02-23 14:00] VITALS: BP 102/67; PULSE 84; RESP 20; TEMP 37.3; O2SAT 97
[2025-02-23 14:33] VITALS: BP 102/67; PULSE 84; RESP 20; TEMP 37.3; O2SAT 97
== END 2025-02-23 17:13 | disposition home or self-care (01) | DRG 885 ==
LOC: ER 05:42 → NP 05:50
PROVIDERS: Admitting Provider Psychiatry & Neurology Psychiatry; Emergency Provider Physician Assistant; Visit Provider Psychiatry & Neurology Psychiatry
DX: F31.9 Bipolar disorder, unspecified (principal); R45.851 Suicidal ideations; R44.0 Auditory hallucinations; F64.9 Gender identity disorder, unspecified; F60.3 Borderline personality disorder; Z63.8 Other specified problems related to primary support group; F41.9 Anxiety disorder, unspecified; Z86.59 Personal history of other mental and behavioral disorders; Z81.8 Family history of other mental and behavioral disorders; F17.210 Nicotine dependence, cigarettes, uncomplicated; F15.11 Other stimulant abuse, in remission; Z91.51 Personal history of suicidal behavior; F43.10 Post-traumatic stress disorder, unspecified; F84.0 Autistic disorder; I95.9 Hypotension, unspecified
CPT/HCPCS: 36415; 80053; 80178; 80306; 80307; 81001; 84443; 85025; 93005; 97150; 97165; 99285; J9999

== ENCOUNTER → 2025-03-10 16:10 | Outpatient (BNVA) | payer OTHER, SELFPAY | PROVIDERS: Visit Provider Psychiatry & Neurology Psychiatry | DX: F60.3 Borderline personality disorder (principal); F84.0 Autistic disorder; F12.10 Cannabis abuse, uncomplicated; F14.90 Cocaine use, unspecified, uncomplicated; Z79.899 Other long term (current) drug therapy | CPT/HCPCS: 80061; 83036 ==